=== PATIENT | female | born 1975 | race African-American/Black ===

== ENCOUNTER 2017-06-01 23:31 | Inpatient (IN) | payer MEDICARE ==
[2017-06-02 00:48] LABS: Acetaminophen Less than 6.0 mcg/mL (10.0-30.0); Alcohol Less than 10 mg/dL (Less than 10); Salicylate Less than 8.0 mg/dL (15.0-30.0)
[2017-06-02 00:49] LABS: ALT (SGPT) 16 U/L (8-55); AST (SGOT) 21 U/L (5-34); Albumin 4.2 g/dL (3.5-5.0); Alkaline Phosphatase 57 U/L (40-150); Anion Gap 16 mmol/L (10-20); BUN (Urea Nitrogen) 10 mg/dL (7.0-18.7); Bilirubin, Total 0.3 mg/dL (0.2-1.2); CK (CPK) 296 U/L (29-168); Calc. Creatinine Clearance 0 mL/min (70-130); Calcium 9.8 mg/dL (7.8-10.44); Carbon Dioxide 24 mmol/L (22-29); Chloride 106 mmol/L (98-107); Estimated GFR-MDRD 85; Globulin 2.8 g/dL (2.4-3.5); Glucose 99 mg/dL (70-105); Potassium 3.6 mmol/L (3.5-5.1); Sodium 142 mmol/L (136-145)
[2017-06-02 01:19] LABS: #Eosinphils 0.1 thou/uL (0.0-0.7); #Lymphocytes 0.6 thou/uL (1.20-3.40); #Monocytes 0.7 thou/uL (0.11-0.59); #Neutrophils 7.3 thou/uL (1.40-6.50); %Basophils 0.5 % (0.0-1.0); %Eosinophils 0.6 % (0.0-10.0); %Lymphocytes 7.3 % (21.0-51.0); %Monocytes 7.7 % (0.0-10.0); Mean Corpuscular HGB CONC 27.1 g/dL (32.0-36.0); Mean Corpuscular Hemoglobin 17.1 pg (27.0-31.0); Mean Corpuscular Volume 63.2 fl (81.0-99.0); Mean Platelet Volume 11.8 fL (7.4-10.4); Platelet Count 537 thou/uL (130-400); RBC Distribution Width 22.4 % (11.5-14.5); Red Blood Cell (RBC) Count 2.93 mill/uL (4.20-5.40); White Blood Cell (WBC) Count 8.7 thou/uL (4.8-10.8)
[2017-06-02 01:34] LABS: Anisocytosis MODERATE=16-30 cells (100X) (0-5/hpf); Hypochromia MODERATE=16-30 cells (100X) (0-5/hpf); Microcytosis MODERATE=15-30 cells (100X) (0-5/hpf); Polychromasia SLIGHT = 2-3 cells (100X) (0-2/hpf)
[2017-06-02 01:35] LABS: PLT Morphology Comment Appears Increased; Spherocytes SLIGHT = 1-5 cells (100X) (None Seen); Tear Drops SLIGHT = 2-5 cells (100X) (0-1/hpf)
[2017-06-02 04:21] LABS: Pregnancy Test - Urine (BHCG) Negative (Negative); Pregu Control Background? CLEAR/WHITE (CLR/WHITE); Pregu Control Bar Appear? YES (CONTROL BAR)
[2017-06-02 04:22] LABS: Bilirubin Negative (Negative); Blood, Urine Moderate (Negative); Clarity CLEAR (Clear); Glucose, Urine (Dipstick) Negative (Negative); Leukocyte Negative (Negative); Nitrite Negative (Negative); Protein, Urine (Dipstick) Trace mg/dL (Neg-Trace); Specific Gravity 1.022 (1.002-1.036); Specific Gravity, Urine 1.022 (1.002-1.036)
[2017-06-02 04:25] LABS: Bacteria/HPF None Seen HPF (None Seen); Hyaline Casts/LPF 7-10 HYALINE CAST LPF (0-3 Hyaline); Pathc Cast-AUWi Flag 1.21 (0-2.49); RBC/HPF 21-50 HPF (0-3); Squamous Epithelial 0-3 HPF (0-3)
[2017-06-02 04:30] LABS: Benzodiazepine Screen Detected (NotDetected)
[2017-06-02 04:31] LABS: Amphetamine Not Detected (NotDetected); Barbiturates Screen Not Detected (NotDetected); Cocaine Metabolite Screen Not Detected (NotDetected); Medtox Control Line Valid? VALID (VALID); Medtox Reader # READER 1; Methadone Not Detected (NotDetected); Methamphetamine Not Detected (NotDetected); Opiate Screen Not Detected (NotDetected); Oxycodone Screen Not Detected (NotDetected); Phencyclidine (PCP) Not Detected (NotDetected); THC/Cannabinoid Screen Not Detected (NotDetected); Tricyclic Screen Not Detected (NotDetected)
--- NOTE | 2017-06-02 08:01 | ULT ---
PRELIMINARY REPORT/[facility]/EMERGENCY AFTER HOURS PROCEDURE: EXAM: US Pelvis Complete, Transabdominal CLINICAL HISTORY: 42 years old, female; Pain and signs and symptoms; Other: Bleeding with clots; Pelvic pain; Patient H X: Heavy vaginal bleeding with clots, pelvic cramping pain. ; Additional info: HX: Anemia TECHNIQUE: Real-time transabdominal pelvic ultrasound (complete) with image documentation. COMPARISON: No relevant prior studies available. FINDINGS: Uterus/cervix: Significantly large heterogeneous uterine mass/fibroid measuring up to 11.5 cm. Endometrium is not well visualized and probably displaced by the mass. Right ovary: Not visualized. Left ovary: Not visualized. Free fluid: No significant free fluid. IMPRESSION: Significantly large uterine mass/fibroid described above. Thank you for allowing us to participate in the care of your patient. Dictated and Authenticated by: Frederick Brooks MD 06/02/2017 3:02 AM Central Time ([place] & [place]) FINAL REPORT TRANSABDOMINAL PELVIC ULTRASOUND: I agree with the preliminary report given by Dr. Frederick Brooks of [facility]. POS: [facility]
[2017-06-02 08:24] LABS: Hemoglobin 6.4 g/dL (12.0-16.0)
[2017-06-02 08:36] VITALS: BMI 28.3
--- NOTE | 2017-06-02 11:14 | HP ---
DATE OF ADMISSION: 06/02/2017 CHIEF COMPLAINT: Severe anemia, thought to be secondary to menorrhagia and fibroids. HISTORY OF PRESENT ILLNESS: At the time of presentation, Ms. Zuleta is a 42-year-old nulliparous fema le, who states that she presented to the emergency department because "I could not control my arms or head." The patient states that that symptom is going on for the last 2-3 months. Of note, the [facility] ent has schizoaffective disorder, for which she is seen at [facility]. She is on Haldol and Cogentin and h as tardive dyskinesia. While the patient was being evaluated, she was found to have severe anemia wi th hemoglobin of 5, hematocrit 18, MCV 63.2, platelets were 537, white blood cell count is 8.7. She was transfused 1 unit in the emergency department and has a resulting hemoglobin at 08:14 this mornin g of 6.4. The patient states that she does feel slightly better. She denies any lightheadedness or dizziness when she stands up and walks around. The patient has had heavy periods since she started h aving periods at age 11 or 12. She states that her menses are irregular and she has them approximate ly every other month. They last 8-9 days. She is unsure how many pads per hour she changes on the of her periods, but states that at night she has to get up sometimes 3 or 4 times during the night to change her pad. She has been on control in the past greater than one year ago in the form of control pills. She states that they stopped her periods completely. The patient is not sexually active. Her last Pap smear was greater than 10 years ago. The patient denies any lightheadedness or dizziness. She denies any cardiovascular or respiratory co mplaints. As far as neurologic review of systems, she reports difficulty controlling her arms and he ad, that has been going on for the last 2-3 months and she has not been evaluated for that. The princess ent is currently bleeding and states that her periods started on 05/31/2017. LIMITED REVIEW OF SYSTEMS: Per HPI. PAST MEDICAL HISTORY: Schizoaffective disorder. PAST SURGICAL HISTORY: Tonsils and adenoids. OBSTETRIC HISTORY: The patient is a 0 and is not sexually active. SOCIAL HISTORY: The patient denies tobacco, alcohol, or illicit drug use. She states she lives with her uncle who helps her. MEDICATIONS: Haldol and Cogentin. ALLERGIES: The patient states that there is a medicine she has taken in the past, which caused encep halitis, but she is unsure of the name. PHYSICAL EXAMINATION: VITAL SIGNS: Temperature 98.8, pulse 85, respiratory rate 18, blood pressure 132/98. GENERAL: Nontoxic-appearing female with unusual posturing in the position, somewhat somnolent and with difficulty with muscle control, perhaps which is causing her to slip her words. HEENT: Normocephalic, atraumatic. LUNGS: Clear to auscultation. CARDIOVASCULAR: Regular rate and rhythm. ABDOMEN: Positive bowel sounds in all 4 quadrants, soft, nontender, nondistended, no rebound, no gua rding. There is a palpable uterine fundus just above the level of the umbilicus, greater on the left hemipelvis than the right that is nontender. GENITOURINARY: Deferred. EXTREMITIES: Without cyanosis, clubbing, or edema. LABORATORY DATA AND STUDIES: White blood cell count 8.7, hemoglobin 5, hematocrit 18.5, MCV 63.2, pl atelets 537. Followup hemoglobin and hematocrit after 1 unit, hemoglobin 6.4, hematocrit 22.6. Chem istries are normal. Urinalysis is likely contaminated. Urine test is negative. Urine karlo g screen is notable only for benzodiazepines. Pelvic ultrasound is notable for an 11 cm fibroid. En dometrium not well visualized. Right ovary or left ovary not visualized. No significant free fluid in the pelvis. ASSESSMENT AND PLAN: 1. A 42-year-old nulliparous non-sexually active female, who suffers from schizoaffective disorder a nd tardive dyskinesia, presents with severe anemia. Given the size of the patient's fibroids and wha t she is able to describe of her periods it is likely secondary to chronic menorrhagia. The patient states that she was aware that she had the fibroid, has been on control pills in the past, whic h completely stopped her periods. Patient is not sure why she discontinued the control pills, but would be willing to try them again. She states she does not like shots, though would likely not be a good candidate for Depo-Provera. Given the patient's mental illness, despite her age, a more in -depth conversation would need to be had regarding any procedures that would affect her fertility. I would transfuse 1 more unit of packed red blood cells to bring her hemoglobin up to 7 given that she is still relatively early into this cycle. 2. The patient's chief complaint was actually not necessarily related to the anemia, but that she co uld not control her arms or her head. I am unsure if this is related to the tardive dyskinesia or so me new finding. The patient states that this started about 2-3 months ago. We will consider either internal medicine or neurology consultations.
[2017-06-02] MEDS ORDERED: Megestrol Acetate 40 MG TAB PO SCH (13:45)
[2017-06-02 19:09] LABS: Hemoglobin 7.4 g/dL (12.0-16.0)
--- NOTE | 2017-06-02 23:39 | CON ---
DATE OF CONSULTATION: 06/02/2017 CONSULTING PHYSICIAN: Dr. Samuel Esquivel. IMPRESSION: Tardive dyskinesia secondary to Haldol. PLAN: To have patient follow up with her psychiatrist at [facility] for a change in treatment. HISTORY: Ms. Zuleta is a 42-year-old black female was on history of schizoaffective disorder. She lewis s been followed by [facility] for quite some time. She has been on Haldol for a number of years by her rep ort. Over the last several months, she has developed some progressive movements of her face and extr emities. She has not seen her psychiatrist since these developed. She is also on Cogentin. PAST MEDICAL HISTORY: Intrauterine bleeding with anemia. ALLERGIES: None. MEDICATIONS: As listed. SOCIAL HISTORY: Unremarkable. FAMILY HISTORY: Noncontributory. REVIEW OF SYSTEMS: No complaint of headache, nausea, vomiting, dizziness, shortness of breath. PHYSICAL EXAMINATION: GENERAL: She is a well-nourished middle-aged woman sitting in the bed. HEENT: Her eyes are disconjugate with the left eye laterally deviated. Conjunctivae clear. Orophar ynx clear. Cranium, normocephalic and atraumatic. NECK: Supple. EXTREMITIES: No cyanosis. NEUROLOGIC: She is alert and cooperative. Speech is fluent and clear. Cranial nerves are intact ot her than the ocular movements. Motor exam showed good strength bilaterally. Rapid alternating movem ents were equal. She has writhing dyskinetic movements of the face, neck, and upper extremities. Se nsations intact. Gait was not tested. SUMMARY: Patient's clinical picture is consistent with tardive dyskinesia secondary to her antipsych otic medication and be happy to follow up with her as an outpatient to pursue some other treatments i f a change in medication does not solve the problem.
[2017-06-03] MEDS ORDERED: Megestrol Acetate 40 MG TAB PO SCH ×3 (09:00→21:00)
--- NOTE | 2017-06-03 09:11 | PDOC.EVN ---
Event Note - Event Note Event Note: 06/03/17 @ 0910: Care assumed this AM. I have restarted her Haldol and cogentin medication for today. I have also increased her Megase 40mg BIB from [facility]D. Possible DC home tomorrow. Neuro has seen her already for her TD medication effects.
[2017-06-03] MEDS ORDERED: Benztropine 1 MG TAB PO SCH (10:00)
--- NOTE | 2017-06-03 10:46 | PDOC.EVN ---
Event Note - Event Note Event Note: Per case management, patient changed by me from OBS to Inpatient as she will stay inhouse today for continued megase use. DX: Heavy menstrual bleed.
[2017-06-03] MEDS ORDERED: Lorazepam 1 MG TAB PO PRN (12:49)
--- NOTE | 2017-06-03 12:50 | PDOC.EVN ---
Event Note - Event Note Event Note: Called by RN that patient agitated. Will order Ativan for help with her anxiety/ agitation.
--- NOTE | 2017-06-03 13:36 | PDOC.EVN ---
Event Note - Event Note Event Note: @1340: [facility] requested as patient still highly agitated and "banging head on bed ". I have discussed case with partner integration planner and we will call [facility] for visitation. Patient requested Ativan po. may need a sitter for patient safety. We do NOT have inpatient pschy services.
--- NOTE | 2017-06-03 13:53 | PDOC.EVN ---
Event Note - Event Note Event Note: Patient sen and advised to take Ativan prn. [facility] pending.
--- NOTE | 2017-06-03 15:37 | PDOC.EVN ---
Event Note - Event Note Event Note: DISCHARGE NOTE Admit: 05/17/17 Discharge: 06/03/17 Patient is currently being seen by [facility]. They recommend misaelcleve now for anti- psychotic treatment. It is the recommendation of [facility] to have her go directly to inpatient psych hospitalization due to psychosis symptoms. I agree with [facility] that it is best for her to be transferred for her safety and for proper psych evaluation. We can continue with Megace 40mg BID for 10 days [facility]. [facility] in planning the patient's care. Nursing staff agrees with our plan. Diagnosis: 1. Anemia-s/p 2 units PRBC 2. Schizo-affective disorder 3. Acute psychosis 4. Heavy vaginal bleeding (resolved) 5. Fibroid uterus
[2017-06-03] MEDS: Benztropine 1 MG TAB PO SCH ×2 (15:40→20:27)
[2017-06-03] MEDS ORDERED: Ziprasidone 20 MG VIAL IM SCH (16:45)
[2017-06-03] MEDS ORDERED: Sterile Water 10 ML VIAL FS SCH (16:45)
--- NOTE | 2017-06-03 20:05 | PDOC.EVN ---
Event Note - Event Note Event Note: Just talked with Karlos Sow inpatient Pyelif. MD to MD transfer done now. Awaiting senior procurement manager transfer per protocol due to [facility] recommendation. Accepting MD aware of patient's HX of HMB and on Megace. No acute medical issues now as VB decreased.
[2017-06-03 20:48] VITALS: BP 133/78; TEMP 98.8
[2017-06-03] MEDS ORDERED: Haloperidol 1 MG TAB PO SCH (21:00)
[2017-06-04] MEDS ORDERED: Benztropine 1 MG TAB PO SCH ×2 (09:00)
== END 2017-06-03 22:01 | DRG 760 ==
LOC: ERS 23:31 → ERHOLD 06-02 03:18 → SURG A 06-02 07:59 → OBSVTOIN 06-03 10:45
PROVIDERS: ADMIT Obstetrics & Gynecology; ATTEND Obstetrics & Gynecology
PROC: 30233N1 Transfusion of Nonautologous Red Blood Cells into Peripheral Vein, Percutaneous Approach (ICD-10-PCS; principal; 2017-06-02)
DX: N92.0 Excessive and frequent menstruation with regular cycle (principal); F23 Brief psychotic disorder; F25.9 Schizoaffective disorder, unspecified; G24.01 Drug induced subacute dyskinesia; D64.9 Anemia, unspecified; T43.4X5A Adverse effect of butyrophenone and thiothixene neuroleptics, initial encounter; D25.9 Leiomyoma of uterus, unspecified; R45.1 Restlessness and agitation; F41.9 Anxiety disorder, unspecified
CPT/HCPCS: 36415; 36430; 76856; 80053; 80306; 80307; 81003; 81015; 81025; 82550; 85025; 85060; 86850; 86900; 86901; 93005; 93976; A4216; J3486; P9016; S0179

== ENCOUNTER 2018-05-16 11:45 | Emergency (ER) | payer MEDICARE ==
[2018-05-16 12:35] LABS: Amphetamine Not Detected (NotDetected); Barbiturates Screen Not Detected (NotDetected); Benzodiazepine Screen Not Detected (NotDetected); Cocaine Metabolite Screen Not Detected (NotDetected); Medtox Control Line Valid? VALID (VALID); Medtox Reader # READER 1; Methadone Not Detected (NotDetected); Methamphetamine Not Detected (NotDetected); Opiate Screen Not Detected (NotDetected); Oxycodone Screen Not Detected (NotDetected); Phencyclidine (PCP) Not Detected (NotDetected); THC/Cannabinoid Screen Not Detected (NotDetected); Tricyclic Screen Not Detected (NotDetected)
[2018-05-16 12:37] LABS: BHCG - Serum Negative (NEGATIVE); Pregs Control Background? CLEAR/WHITE (CLR/WHITE); Pregs Control Bar Appear? YES (CONTROL BAR)
[2018-05-16 12:43] LABS: ALT (SGPT) 10 U/L (8-55); AST (SGOT) 16 U/L (5-34); Acetaminophen Less than 6.0 mcg/mL (10.0-30.0); Alcohol Less than 10 mg/dL (Less than 10); Alkaline Phosphatase 60 U/L (40-150); Anion Gap 12 mmol/L (10-20); BUN (Urea Nitrogen) 10 mg/dL (7.0-18.7); Bilirubin, Total 0.2 mg/dL (0.2-1.2); CK (CPK) 204 U/L (29-168); Calc. Creatinine Clearance 0 mL/min (70-130); Calcium 9.3 mg/dL (7.8-10.44); Carbon Dioxide 22 mmol/L (22-29); Chloride 110 mmol/L (98-107); Estimated GFR-MDRD Greater than 90; Globulin 2.8 g/dL (2.4-3.5); Glucose 75 mg/dL (70-105); Potassium 4.5 mmol/L (3.5-5.1); Protein, Total 6.8 g/dL (6.0-8.3); Salicylate Less than 8.0 mg/dL (15.0-30.0); Sodium 139 mmol/L (136-145)
[2018-05-16 12:58] LABS: Hemoglobin 5.2 g/dL (12.0-16.0); Mean Corpuscular HGB CONC 27.2 g/dL (32.0-36.0); Mean Corpuscular Hemoglobin 17.4 pg (27.0-31.0); Mean Corpuscular Volume 64.2 fL (78.0-98.0); Mean Platelet Volume 11.6 fL (7.4-10.4); Platelet Count 276 thou/uL (130-400); RBC Distribution Width 19.1 % (11.5-14.5); Red Blood Cell (RBC) Count 2.96 mill/uL (4.20-5.40); White Blood Cell (WBC) Count 3.4 thou/uL (4.8-10.8)
[2018-05-16 13:08] LABS: Band 2 % (5-11); Bite Cells SLIGHT = 2-5 cells (100X) (0-1/hpf); Eosinophils 2 % (0-10); Hypochromia MARKED = >30 cells (100X) (0-5/hpf); Lymphocytes 19 % (21-51); MDiff Complete? YES; Microcytosis MODERATE=15-30 cells (100X) (0-5/hpf); Monocytes 16 % (0-10); Neutrophil 61 % (42-75); Nucleated RBC 1 % (0); Ovalocytes MODERATE= 6-15 cells (100X) (0-1/hpf); PLT Morphology Comment Appears Adequate; Polychromasia SLIGHT = 2-3 cells (100X) (0-2/hpf); Reflex for Review?? YES; Tear Drops SLIGHT = 2-5 cells (100X) (0-1/hpf)
[2018-05-16 15:24] LABS: Hemoglobin 6.5 g/dL (12.0-16.0); Mean Corpuscular HGB CONC 29.8 g/dL (32.0-36.0); Mean Corpuscular Hemoglobin 20.4 pg (27.0-31.0); Mean Corpuscular Volume 68.2 fL (78.0-98.0); Platelet Count 287 thou/uL (130-400); RBC Distribution Width 24.1 % (11.5-14.5); Red Blood Cell (RBC) Count 3.19 mill/uL (4.20-5.40); White Blood Cell (WBC) Count 4.7 thou/uL (4.8-10.8)
[2018-05-16 16:01] LABS: #Basophils 0.1 thou/uL (0.0-0.2); #Lymphocytes 1.2 thou/uL (1.20-3.40); #Monocytes 0.5 thou/uL (0.11-0.59); #Neutrophils 2.9 thou/uL (1.40-6.50); %Basophils 1.3 % (0.0-1.0); %Lymphocytes 25.4 % (21.0-51.0); %Monocytes 10.5 % (0.0-10.0); %Neutrophils 61.8 % (42.0-75.0); Anisocytosis SLIGHT = 6-15 cells (100X) (0-5/hpf); Band 3 % (5-11); Elliptocytes SLIGHT = 2-5 cells (100X) (0-1/hpf); Hypochromia SLIGHT = 6-15 cells (100X) (0-5/hpf); Lymphocytes 22 % (21-51); MDiff Complete? YES; Microcytosis SLIGHT = 6-15 cells (100X) (0-5/hpf); Monocytes 6 % (0-10); Neutrophil 69 % (42-75); PLT Morphology Comment Appears Adequate; Poikilocytosis SLIGHT = 6-15 cells (100X) (0-5/hpf); Polychromasia SLIGHT = 2-3 cells (100X) (0-2/hpf); Tear Drops SLIGHT = 2-5 cells (100X) (0-1/hpf)
[2018-05-16] MEDS ORDERED: Benztropine 1 MG TAB PO SCH (21:00)
[2018-05-16] MEDS ORDERED: Haloperidol 1 MG TAB PO SCH (21:00)
[2018-05-17] MEDS ORDERED: Lidocaine Viscous Sol 2% 15 ml UD Cup ONE (01:50)
[2018-05-17] MEDS ORDERED: Mag-Al 1200 mg/1200 mg/30 ML UDCUP ONE (01:50)
[2018-05-17 11:47] LABS: Hemoglobin 6.6 g/dL (12.0-16.0); Mean Corpuscular Hemoglobin 19.7 pg (27.0-31.0); Mean Corpuscular Volume 67.8 fL (78.0-98.0); Mean Platelet Volume 6.3 fL (7.4-10.4); Platelet Count 276 thou/uL (130-400); RBC Distribution Width 23.4 % (11.5-14.5); Red Blood Cell (RBC) Count 3.37 mill/uL (4.20-5.40); White Blood Cell (WBC) Count 3.7 thou/uL (4.8-10.8)
[2018-05-17 11:52] LABS: Anisocytosis MODERATE=16-30 cells (100X) (0-5/hpf); Band 3 % (5-11); Eosinophils 4 % (0-10); Hypochromia MARKED = >30 cells (100X) (0-5/hpf); Lymphocytes 27 % (21-51); MDiff Complete? YES; Microcytosis MODERATE=15-30 cells (100X) (0-5/hpf); Monocytes 6 % (0-10); Neutrophil 58 % (42-75); Ovalocytes MODERATE= 6-15 cells (100X) (0-1/hpf); PLT Morphology Comment Appears Adequate; Polychromasia SLIGHT = 2-3 cells (100X) (0-2/hpf); Reactive Lymphocytes 1 % (0-10); Tear Drops SLIGHT = 2-5 cells (100X) (0-1/hpf)
--- NOTE | 2018-05-17 15:53 | EKG ---
Test Reason : Blood Pressure : / mmHG Vent. Rate : 091 BPM Atrial Rate : 091 BPM P-R Int : 124 ms QRS Dur : 084 ms QT Int : 344 ms P-R-T Axes : 066 021 009 degrees QTc Int : 423 ms Normal sinus rhythm Nonspecific T wave abnormality Abnormal ECG Confirmed by SELMA BOLANOS ([id number]), editor managing newspaper SAMMI ORDOÑEZ ([id number]) on 05/17/2018 3:53:17 PM Referred By: Confirmed By:SELMA BOLANOS
== END 2018-05-17 15:53 | disposition home or self-care (01) ==
LOC: ERS 11:45
DX: F20.9 Schizophrenia, unspecified (principal); R44.0 Auditory hallucinations; D50.0 Iron deficiency anemia secondary to blood loss (chronic); F32.9 Major depressive disorder, single episode, unspecified; Z79.899 Other long term (current) drug therapy
CPT/HCPCS: 36430; 80053; 80306; 80307; 82550; 84703; 85025 ×2; 86850; 86900; 86901; 86920; 93005; P9016; 36415; 85060

== ENCOUNTER 2018-06-05 08:59 | Emergency (ER) | payer MEDICARE ==
[2018-06-05] MEDS ORDERED: Haloperidol 1 MG TAB ONE (09:05)
[2018-06-05] MEDS ORDERED: Lorazepam 1 MG TAB ONE (09:23)
[2018-06-05] MEDS ORDERED: diphenhydrAMINE 25 MG CAP ONE (09:23)
[2018-06-05 10:04] LABS: BHCG - Serum Negative (NEGATIVE); Pregs Control Background? CLEAR/WHITE (CLR/WHITE); Pregs Control Bar Appear? YES (CONTROL BAR)
[2018-06-05 10:10] LABS: ALT (SGPT) 8 U/L (8-55); AST (SGOT) 13 U/L (5-34); Acetaminophen Less than 6.0 mcg/mL (10.0-30.0); Alcohol Less than 10 mg/dL (Less than 10); Alkaline Phosphatase 66 U/L (40-150); Anion Gap 12 mmol/L (10-20); BUN (Urea Nitrogen) 8 mg/dL (7.0-18.7); Bilirubin, Total 0.3 mg/dL (0.2-1.2); CK (CPK) 104 U/L (29-168); Calc. Creatinine Clearance 0 mL/min (70-130); Calcium 9.5 mg/dL (7.8-10.44); Carbon Dioxide 26 mmol/L (22-29); Chloride 106 mmol/L (98-107); Estimated GFR-MDRD Greater than 90; Globulin 2.8 g/dL (2.4-3.5); Glucose 88 mg/dL (70-105); Potassium 4.2 mmol/L (3.5-5.1); Protein, Total 6.8 g/dL (6.0-8.3); Salicylate Less than 8.0 mg/dL (15.0-30.0); Sodium 140 mmol/L (136-145)
[2018-06-05 10:24] LABS: #Eosinphils 0.1 thou/uL (0.0-0.7); #Lymphocytes 0.9 thou/uL (1.20-3.40); #Monocytes 0.9 thou/uL (0.11-0.59); %Basophils 0.7 % (0.0-1.0); %Lymphocytes 12.5 % (21.0-51.0); %Monocytes 13.2 % (0.0-10.0); %Neutrophils 72.7 % (42.0-75.0); Eosinophils 1 % (0-10); Hemoglobin 6.7 g/dL (12.0-16.0); Hypochromia MODERATE=16-30 cells (100X) (0-5/hpf); Large Platelets SLIGHT; Lymphocytes 7 % (21-51); MDiff Complete? YES; Mean Corpuscular HGB CONC 28.7 g/dL (32.0-36.0); Mean Corpuscular Hemoglobin 18.9 pg (27.0-31.0); Mean Platelet Volume 7.3 fL (7.4-10.4); Microcytosis SLIGHT = 6-15 cells (100X) (0-5/hpf); Monocytes 13 % (0-10); Neutrophil 77 % (42-75); Platelet Count 331 thou/uL (130-400); Platelet Morphology Comment Appears Adequate; Polychromasia SLIGHT = 2-3 cells (100X) (0-2/hpf); RBC Distribution Width 22.9 % (11.5-14.5); Reactive Lymphocytes 2 % (0-10); Red Blood Cell (RBC) Count 3.53 mill/uL (4.20-5.40); Small Platelets SLIGHT; White Blood Cell (WBC) Count 6.9 thou/uL (4.8-10.8)
[2018-06-05 13:00] LABS: Bilirubin Negative (Negative); Blood, Urine Negative (Negative); Clarity CLEAR (Clear); Glucose, Urine (Dipstick) Negative (Negative); Leukocyte Negative (Negative); Nitrite Negative (Negative); Protein, Urine (Dipstick) Negative (Neg-Trace); Specific Gravity, Urine 1.003 (1.002-1.036); Urobilinogen 0.2 mg/dL (0.2-1.0)
[2018-06-05 13:10] LABS: Amphetamine Not Detected (NotDetected); Barbiturates Screen Not Detected (NotDetected); Benzodiazepine Screen Not Detected (NotDetected); Cocaine Metabolite Screen Not Detected (NotDetected); Medtox Control Line Valid? VALID (VALID); Medtox Reader # READER 1; Methadone Not Detected (NotDetected); Methamphetamine Not Detected (NotDetected); Opiate Screen Not Detected (NotDetected); Oxycodone Screen Not Detected (NotDetected); Phencyclidine (PCP) Not Detected (NotDetected); THC/Cannabinoid Screen Not Detected (NotDetected); Tricyclic Screen Not Detected (NotDetected)
== END 2018-06-05 15:57 | disposition home or self-care (01) ==
LOC: ERS 08:59
DX: F20.9 Schizophrenia, unspecified (principal); D64.9 Anemia, unspecified; G24.01 Drug induced subacute dyskinesia; F32.9 Major depressive disorder, single episode, unspecified; Z79.899 Other long term (current) drug therapy
CPT/HCPCS: 36415; 80053; 80306; 80307; 81003; 82550; 84443; 84703; 85025; 99285

== ENCOUNTER 2018-07-12 18:08 | Emergency (ER) | payer MEDICARE ==
[2018-07-12] MEDS ORDERED: Lorazepam 1 MG TAB ONE (18:34)
[2018-07-12] MEDS ORDERED: diphenhydrAMINE 25 MG CAP ONE (18:35)
[2018-07-12 19:16] LABS: Bilirubin Negative (Negative); Blood, Urine Negative (Negative); Clarity CLEAR (Clear); Glucose, Urine (Dipstick) Negative (Negative); Leukocyte Negative (Negative); Nitrite Negative (Negative); Protein, Urine (Dipstick) Negative (Neg-Trace); Specific Gravity, Urine 1.012 (1.002-1.036); pH, Urine 5.5 (5.0-9.0)
[2018-07-12 19:25] LABS: Pregnancy Test - Urine (BHCG) Negative (Negative); Pregu Control Background? CLEAR/WHITE (CLR/WHITE); Pregu Control Bar Appear? YES (CONTROL BAR); Specific Gravity 1.012 (1.002-1.036)
== END 2018-07-12 20:22 | disposition home or self-care (01) ==
LOC: ERS 18:08
DX: G24.01 Drug induced subacute dyskinesia (principal); F32.9 Major depressive disorder, single episode, unspecified; F20.9 Schizophrenia, unspecified; Z79.899 Other long term (current) drug therapy
CPT/HCPCS: 81003; 81025; 99285; Q0163

== ENCOUNTER 2019-01-11 12:52 | Day surgery (SDC) | payer MEDICARE, MEDICAID ==
[~2019-01-11 12:52] MED LIST: Ferumoxytol (ERSD) 510 MG in Sodium Chloride 0.9% 250 ML 150 ML IVPB SCH
[2019-01-11] MEDS ORDERED: Sodium Chloride 0.9% 20 ML ONE (13:03)
[2019-01-11 13:19] VITALS: BP 139/73; TEMP 98.2
[2019-01-11 13:28] LABS: #Basophils 0.1 thou/uL (0.0-0.2); #Eosinphils 0.1 thou/uL (0.0-0.7); #Lymphocytes 1.2 thou/uL (1.20-3.40); #Monocytes 0.6 thou/uL (0.11-0.59); #Neutrophils 2.7 thou/uL (1.40-6.50); %Basophils 1.5 % (0.0-1.0); %Eosinophils 1.6 % (0.0-10.0); %Lymphocytes 25.4 % (21.0-51.0); %Monocytes 13.2 % (0.0-10.0); %Neutrophils 58.3 % (42.0-75.0); Hemoglobin 7.6 g/dL (12.0-16.0); Mean Corpuscular HGB CONC 29.7 g/dL (32.0-36.0); Mean Corpuscular Hemoglobin 20.4 pg (27.0-31.0); Mean Corpuscular Volume 68.5 fL (78.0-98.0); Mean Platelet Volume 11.7 fL (7.4-10.4); Platelet Count 269 thou/uL (130-400); RBC Distribution Width 20.4 % (11.5-14.5); Red Blood Cell (RBC) Count 3.74 mill/uL (4.20-5.40); White Blood Cell (WBC) Count 4.6 thou/uL (4.8-10.8)
[2019-01-11 13:54] LABS: Anisocytosis MODERATE=16-30 cells (100X) (0-5/hpf); Hypochromia SLIGHT = 6-15 cells (100X) (0-5/hpf); MDiff Complete? YES; Microcytosis SLIGHT = 6-15 cells (100X) (0-5/hpf); Ovalocytes SLIGHT = 2-5 cells (100X) (0-1/hpf); Platelet Morphology Comment Appears Adequate; Poikilocytosis SLIGHT = 6-15 cells (100X) (0-5/hpf); Polychromasia SLIGHT = 2-3 cells (100X) (0-2/hpf); Schistocytes SLIGHT = 2-5 cells (100X) (0-1/hpf); Spherocytes SLIGHT = 1-5 cells (100X) (None Seen); Target Cells SLIGHT = 2-5 cells (100X) (0-1/hpf); Tear Drops SLIGHT = 2-5 cells (100X) (0-1/hpf)
== END 2019-01-11 15:29 | disposition home or self-care (01) ==
LOC: ONC/OP 12:52
PROVIDERS: ATTEND Internal Medicine Hematology & Oncology
DX: D50.0 Iron deficiency anemia secondary to blood loss (chronic) (principal)
CPT/HCPCS: 85025; 96365; J7050; Q0139

== ENCOUNTER 2019-02-02 09:36 | Day surgery (SDC) | payer MEDICARE, MEDICAID ==
[~2019-02-02 09:36] MED LIST changes: -Ferumoxytol (ERSD) 510 MG in Sodium Chloride 0.9% 250 ML 150 ML IVPB SCH; +Ferumoxytol (NON ERSD) 510 MG in Sodium Chloride 0.9% 250 ML 150 ML IVPB SCH
[2019-02-02] MEDS ORDERED: Sodium Chloride 0.9% 20 ML ONE (09:51)
[2019-02-02 11:32] LABS: #Eosinphils 0.1 thou/uL (0.0-0.7); #Lymphocytes 1.1 thou/uL (1.20-3.40); #Monocytes 0.3 thou/uL (0.11-0.59); #Neutrophils 1.9 thou/uL (1.40-6.50); %Basophils 0.4 % (0.0-1.0); %Eosinophils 2.5 % (0.0-10.0); %Lymphocytes 31.6 % (21.0-51.0); %Neutrophils 55.6 % (42.0-75.0); Hemoglobin 10.3 g/dL (12.0-16.0); Mean Corpuscular HGB CONC 30.6 g/dL (32.0-36.0); Mean Corpuscular Hemoglobin 23.7 pg (27.0-31.0); Mean Corpuscular Volume 77.5 fL (78.0-98.0); Mean Platelet Volume 11.6 fL (7.4-10.4); Platelet Count 280 thou/uL (130-400); RBC Distribution Width 24.9 % (11.5-14.5); Red Blood Cell (RBC) Count 4.35 mill/uL (4.20-5.40); White Blood Cell (WBC) Count 3.4 thou/uL (4.8-10.8)
[2019-02-02 11:33] VITALS: BP 109/67; TEMP 98.3
[2019-02-02 11:46] LABS: Anisocytosis MODERATE=16-30 cells (100X) (0-5/hpf); Hypochromia SLIGHT = 6-15 cells (100X) (0-5/hpf); MDiff Complete? YES; Polychromasia SLIGHT = 2-3 cells (100X) (0-2/hpf); Schistocytes SLIGHT = 2-5 cells (100X) (0-1/hpf)
== END 2019-02-02 11:35 | disposition home or self-care (01) ==
LOC: ONC/OP 09:36
PROVIDERS: ATTEND Internal Medicine Hematology & Oncology
DX: D50.0 Iron deficiency anemia secondary to blood loss (chronic) (principal)
CPT/HCPCS: 85025; 96365; J7050; Q0138

== ENCOUNTER 2019-08-16 11:49 | Inpatient (IN) | payer MEDICARE, MEDICAID ==
[2019-08-16 12:40] LABS: #Lymphocytes 0.7 thou/uL (1.20-3.40); #Monocytes 0.4 thou/uL (0.11-0.59); #Neutrophils 2.5 thou/uL (1.40-6.50); %Basophils 1.2 % (0.0-1.0); %Eosinophils 0.8 % (0.0-10.0); %Lymphocytes 19.9 % (21.0-51.0); %Neutrophils 67.2 % (42.0-75.0); Hemoglobin 5.1 g/dL (12.0-16.0); Mean Corpuscular HGB CONC 28.4 g/dL (32.0-36.0); Platelet Count 427 thou/uL (130-400); Red Blood Cell (RBC) Count 2.68 mill/uL (4.20-5.40); White Blood Cell (WBC) Count 3.7 thou/uL (4.8-10.8)
[2019-08-16 12:46] LABS: BHCG - Serum Negative (NEGATIVE)
[2019-08-16 12:47] LABS: Pregs Control Background? CLEAR/WHITE (CLR/WHITE); Pregs Control Bar Appear? YES (CONTROL BAR)
[2019-08-16 12:55] LABS: ALT (SGPT) 7 U/L (8-55); AST (SGOT) 12 U/L (5-34); Alkaline Phosphatase 55 U/L (40-110); Anion Gap 10 mmol/L (10-20); BUN (Urea Nitrogen) 11 mg/dL (7.0-18.7); Bilirubin, Total 0.2 mg/dL (0.2-1.2); CK (CPK) 124 U/L (29-168); Calc. Creatinine Clearance 0 mL/min (70-130); Calcium 9.3 mg/dL (7.8-10.44); Carbon Dioxide 27 mmol/L (22-29); Chloride 106 mmol/L (98-107); Estimated GFR-MDRD 89; Globulin 2.3 g/dL (2.4-3.5); Glucose 84 mg/dL (70-105); Potassium 4.2 mmol/L (3.5-5.1); Protein, Total 6.3 g/dL (6.0-8.3); Sodium 139 mmol/L (136-145)
[2019-08-16 13:01] LABS: Hypochromia MODERATE=16-30 cells (100X) (0-5/hpf)
[2019-08-16 13:02] LABS: Microcytosis MODERATE=15-30 cells (100X) (0-5/hpf); Ovalocytes MODERATE= 6-15 cells (100X) (0-1/hpf); Polychromasia SLIGHT = 2-3 cells (100X) (0-2/hpf); Target Cells SLIGHT = 2-5 cells (100X) (0-1/hpf)
[2019-08-16 13:19] LABS: Bacteria/HPF None Seen HPF (None Seen); Bilirubin Negative (Negative); Blood, Urine 3+ (Negative); Clarity Clear (Clear); Glucose, Urine (Dipstick) Normal (Negative); Leukocyte Negative Leu/uL (Negative); Nitrite Negative (Negative); Protein, Urine (Dipstick) Negative (Neg-Trace); RBC/HPF 21-50 HPF (0-3); Squamous Epithelial 0-3 HPF (0-3); Urobilinogen Normal mg/dL (Less than 2); WBC/HPF 0-3 HPF (0-3)
[2019-08-16 13:24] LABS: Thyroid Stimulating Hormone 1.1782 uIU/mL (0.35-4.94)
[2019-08-16 18:17] VITALS: BMI 28.0
--- NOTE | 2019-08-16 18:51 | HP ---
CHIEF COMPLAINT: Sent for medical clearance from [facility]. HISTORY OF PRESENT ILLNESS: This is a 44-year-old female with multiple psychiatric disorder, who was at [facility] and was sent to the emergency department for "medical clearance." In the ER, initial assessment revealed a hemoglobin level of 5.1. The patient does have abnormal uterine bleeding with menorrhagia. The patient will likely require more than 2 units of blood transfusion, and that will be time-consuming, so the ER has asked us to place this patient on observation until this transfusion has been completed and anemia is corrected. PAST MEDICAL HISTORY: No significant past medical or surgical history. PHYSICAL EXAMINATION: GENERAL: The patient is alert and oriented x3. HEENT: Head is normocephalic and atraumatic. Extraocular muscles are intact. NECK: Supple. CHEST: Clear to auscultation bilaterally. CARDIOVASCULAR: Revealed normal S1 and normal S2. No murmurs, rubs, or gallops. Regular rate and rhythm. ABDOMEN: Soft, nontender, and nondistended. NEUROLOGIC: Unremarkable for focal abnormalities. ASSESSMENT: 1. Anemia due to [id number] blood loss. 2. Menorrhagia. PLAN: We will transfuse 2 units of packed RBCs and recheck H and H and transfuse another unit if need be. Job ID: [id number] MTDD
[2019-08-16] MEDS ORDERED: hydrALAZINE 20 MG/ML VIAL SLOW IVP SCH (21:45)
[2019-08-17 06:26] LABS: Hemoglobin 7.8 g/dL (12.0-16.0); Mean Corpuscular HGB CONC 30.9 g/dL (32.0-36.0); Mean Corpuscular Hemoglobin 22.5 pg (27.0-31.0); Mean Corpuscular Volume 72.9 fL (78.0-98.0); Mean Platelet Volume 10.8 fL (7.4-10.4); Platelet Count 374 thou/uL (130-400); Red Blood Cell (RBC) Count 3.46 mill/uL (4.20-5.40); White Blood Cell (WBC) Count 4.5 thou/uL (4.8-10.8)
[2019-08-17 06:38] LABS: Anion Gap 10 mmol/L (10-20); BUN (Urea Nitrogen) 11 mg/dL (7.0-18.7); Calc. Creatinine Clearance 106 mL/min (70-130); Calcium 8.6 mg/dL (7.8-10.44); Carbon Dioxide 24 mmol/L (22-29); Chloride 108 mmol/L (98-107); Estimated GFR-MDRD Greater than 90; Glucose 88 mg/dL (70-105); Sodium 138 mmol/L (136-145)
[2019-08-17 06:39] LABS: Anisocytosis SLIGHT = 6-15 cells (100X) (0-5/hpf); Band 1 % (5-11); Eosinophils 1 % (0-10); Hypochromia MODERATE=16-30 cells (100X) (0-5/hpf); Lymphocytes 21 % (21-51); MDiff Complete? YES; Microcytosis SLIGHT = 6-15 cells (100X) (0-5/hpf); Monocytes 15 % (0-10); Neutrophil 62 % (42-75)
[2019-08-17] MEDS ORDERED: Benztropine 1 MG TAB PO SCH (11:30)
[2019-08-17] MEDS ORDERED: clonazePAM 0.5 MG TAB PO SCH (12:30)
--- NOTE | 2019-08-17 18:26 | PDOC.HOSPP ---
- Subjective Encounter Date: 08/17/19 Subjective: No new complaints. - Objective Vital Signs & Weight: Vital Signs (12 hours) Temp Pulse Pulse Resp BP BP Pulse Ox 08/17/19 17:45 98.3 F 83 20 163/96 H 08/17/19 15:00 99.0 F 80 20 147/94 H 08/17/19 14:45 98.6 F 83 20 156/83 H 08/17/19 12:24 98.3 F 83 18 143/81 H 99 08/17/19 08:42 98.9 F 76 18 146/98 H 100 08/17/19 08:00 100 Weight Weight 163 lb 3.2 oz I&O: 08/16/19 08/17/19 08/18/19 06:59 06:59 06:59 Intake Total 350 350 Balance 350 350 Result Diagrams: 08/17/19 05:43 08/17/19 05:43 Hospitalist ROS - Medication Medications: Active Medications Generic Name Dose Route Start Last Admin Trade Name Freq PRN Reason Stop Dose Admin Quetiapine Fumarate 100 mg 08/16/19 21:00 08/16/19 20:53 Seroquel PO 100 mg HS DERIC Administration - Exam General Appearance: NAD Eye: PERRL Neck: supple Heart: RRR Respiratory: CTAB Gastrointestinal: soft, non-tender Extremities: no cyanosis Hosp A/P (1) Anemia due to chronic blood loss Code(s): D50.0 - IRON DEFICIENCY ANEMIA SECONDARY TO BLOOD LOSS (CHRONIC) Status: Acute (2) Heavy menstrual bleeding Code(s): N92.0 - EXCESSIVE AND FREQUENT MENSTRUATION WITH REGULAR CYCLE Status : Acute - Plan Received 3 units of PRBCs Repeat CBC
[2019-08-17 19:10] LABS: Anisocytosis SLIGHT = 6-15 cells (100X) (0-5/hpf); Band 2 % (5-11); Hypochromia SLIGHT = 6-15 cells (100X) (0-5/hpf); Large Platelets SLIGHT; Lymphocytes 12 % (21-51); MDiff Complete? YES; Mean Corpuscular HGB CONC 30.9 g/dL (32.0-36.0); Mean Corpuscular Hemoglobin 23.2 pg (27.0-31.0); Microcytosis SLIGHT = 6-15 cells (100X) (0-5/hpf); Monocytes 10 % (0-10); Neutrophil 75 % (42-75); Ovalocytes SLIGHT = 2-5 cells (100X) (0-1/hpf); Platelet Count 436 thou/uL (130-400); Platelet Morphology Comment Appears Increased; Polychromasia MODERATE = 3-4 cells (100X) (0-2/hpf); RBC Distribution Width 21.9 % (11.5-14.5); Reactive Lymphocytes 1 % (0-10); Schistocytes SLIGHT = 2-5 cells (100X) (0-1/hpf); Target Cells MODERATE= 6-15 cells (100X) (0-1/hpf); Tear Drops SLIGHT = 2-5 cells (100X) (0-1/hpf); White Blood Cell (WBC) Count 6.7 thou/uL (4.8-10.8)
[2019-08-17] MEDS: Benztropine 1 MG TAB PO SCH (20:48)
[2019-08-18 06:41] LABS: Hemoglobin 9.9 g/dL (12.0-16.0); Mean Corpuscular HGB CONC 30.8 g/dL (32.0-36.0); Mean Corpuscular Hemoglobin 23.3 pg (27.0-31.0); Mean Corpuscular Volume 75.5 fL (78.0-98.0); Platelet Count 400 thou/uL (130-400); RBC Distribution Width 21.9 % (11.5-14.5); Red Blood Cell (RBC) Count 4.25 mill/uL (4.20-5.40)
[2019-08-18 06:52] LABS: Anisocytosis SLIGHT = 6-15 cells (100X) (0-5/hpf); Eosinophils 4 % (0-10); Hypochromia SLIGHT = 6-15 cells (100X) (0-5/hpf); Lymphocytes 25 % (21-51); MDiff Complete? YES; Microcytosis SLIGHT = 6-15 cells (100X) (0-5/hpf); Monocytes 12 % (0-10); Neutrophil 59 % (42-75)
[2019-08-18 06:57] LABS: Anion Gap 11 mmol/L (10-20); BUN (Urea Nitrogen) 9 mg/dL (7.0-18.7); Calc. Creatinine Clearance 97 mL/min (70-130); Calcium 9.3 mg/dL (7.8-10.44); Carbon Dioxide 25 mmol/L (22-29); Chloride 108 mmol/L (98-107); Estimated GFR-MDRD 86; Glucose 79 mg/dL (70-105); Sodium 140 mmol/L (136-145)
[2019-08-18] MEDS: Benztropine 1 MG TAB PO SCH ×2 (08:42→20:39)
[2019-08-18] MEDS ORDERED: INGREZZA 80 MG PO SCH (09:00)
--- NOTE | 2019-08-18 14:33 | EKG ---
Test Reason : Blood Pressure : / mmHG Vent. Rate : 079 BPM Atrial Rate : 079 BPM P-R Int : 120 ms QRS Dur : 084 ms QT Int : 362 ms P-R-T Axes : 059 017 012 degrees QTc Int : 415 ms Normal sinus rhythm Normal ECG Confirmed by ZENAIDA JAVIER D.O. ([id number]), editor greeting card VIRGINIA SANCHEZ ([id number]) on 08/18/2019 2:33:14 PM Referred By: Confirmed By:ZENAIDA JAVIER D.O.
[2019-08-18] MEDS ORDERED: clonazePAM 1 MG TAB PO SCH (16:00)
--- NOTE | 2019-08-18 19:35 | PDOC.HOSPP ---
- Subjective Encounter Date: 08/18/19 Subjective: The patient is currently stable and does not have any more symptoms of anemia. - Objective Vital Signs & Weight: Vital Signs (12 hours) Temp Pulse Resp BP Pulse Ox 08/18/19 08:30 95 08/18/19 07:39 98.4 F 70 20 165/89 H 95 Weight Weight 163 lb 3.2 oz I&O: 08/17/19 08/18/19 08/19/19 06:59 06:59 06:59 Intake Total 987 509 2785 Balance 255 400 7338 Result Diagrams: 08/18/19 06:08 08/18/19 06:08 Hospitalist ROS - Medication Medications: Active Medications Generic Name Dose Route Start Last Admin Trade Name Freq PRN Reason Stop Dose Admin Benztropine Mesylate 1 mg 08/17/19 21:00 08/18/19 08:42 Cogentin PO 1 mg BID DERIC Administration Quetiapine Fumarate 100 mg 08/16/19 21:00 08/17/19 20:48 Seroquel PO 100 mg HS DERIC Administration - Exam General Appearance: NAD ENT: normocephalic atraumatic Neck: supple, no JVD Heart: RRR Respiratory: CTAB Gastrointestinal: soft, non-tender, non-distended, normal bowel sounds Neurological: cranial nerve grossly intact, no focal deficits Hosp A/P (1) Anemia due to chronic blood loss Code(s): D50.0 - IRON DEFICIENCY ANEMIA SECONDARY TO BLOOD LOSS (CHRONIC) Status: Acute (2) Heavy menstrual bleeding Code(s): N92.0 - EXCESSIVE AND FREQUENT MENSTRUATION WITH REGULAR CYCLE Status : Acute - Plan H&H improved with blood transfusion. No evidence of further bleeding. The patient is asymptomatic. She is stable for discharge from medical standpoint.
[2019-08-19 05:56] LABS: Anion Gap 9 mmol/L (10-20); BUN (Urea Nitrogen) 11 mg/dL (7.0-18.7); Calc. Creatinine Clearance 100 mL/min (70-130); Calcium 9.1 mg/dL (7.8-10.44); Carbon Dioxide 29 mmol/L (22-29); Chloride 106 mmol/L (98-107); Estimated GFR-MDRD 90; Glucose 85 mg/dL (70-105); Potassium 3.9 mmol/L (3.5-5.1); Sodium 140 mmol/L (136-145)
[2019-08-19 07:04] LABS: Anisocytosis SLIGHT = 6-15 cells (100X) (0-5/hpf); Eosinophils 3 % (0-10); Hemoglobin 9.1 g/dL (12.0-16.0); Lymphocytes 19 % (21-51); MDiff Complete? YES; Mean Corpuscular HGB CONC 30.8 g/dL (32.0-36.0); Mean Corpuscular Hemoglobin 23.2 pg (27.0-31.0); Mean Corpuscular Volume 75.1 fL (78.0-98.0); Mean Platelet Volume 11.1 fL (7.4-10.4); Monocytes 7 % (0-10); Neutrophil 71 % (42-75); Platelet Count 332 thou/uL (130-400); Platelet Morphology Comment Appears Adequate; RBC Distribution Width 22.1 % (11.5-14.5); Red Blood Cell (RBC) Count 3.93 mill/uL (4.20-5.40); White Blood Cell (WBC) Count 4.9 thou/uL (4.8-10.8)
[2019-08-19] MEDS: Benztropine 1 MG TAB PO SCH (09:44)
[2019-08-19 17:05] VITALS: BP 125/94; TEMP 98.9
--- NOTE | 2019-08-20 09:17 | DIS ---
DATE OF ADMISSION: 08/16/2019 DATE OF DISCHARGE: 08/19/2019 DISCHARGE DIAGNOSES: 1. Anemia due to chronic blood loss. 2. Menorrhagia. 3. Psychosis. DISCHARGE MEDICATIONS: 1. Seroquel 100 mg orally nightly. 2. Valbenazine 80 mg orally daily. HISTORY OF PRESENT ILLNESS AND HOSPITAL COURSE: The patient is a 44-year-old female with multiple psychiatric disorders, who was sent to our emergency department for medical clearance, referred to [facility]. In the ER, her hemoglobin was found to be 5.1. The patient does have abnormally formed bleeding with menorrhagia. She is on the third day of her menstrual cycle. She was placed in observation and transfused 3 units of packed RBCs leading to improvement in her hemoglobin level to 9.9. On the day of discharge, the patient is able to ambulate well and is asymptomatic. At this time, she is ready for transfer. Job ID: [id number] MTDD
== END 2019-08-19 17:04 | DRG 812 ==
LOC: ERS 11:49 → T4-A 13:34
PROVIDERS: ADMIT Internal Medicine; ATTEND Internal Medicine
PROC: 30233N1 Transfusion of Nonautologous Red Blood Cells into Peripheral Vein, Percutaneous Approach (ICD-10-PCS; principal; 2019-08-16)
DX: D50.0 Iron deficiency anemia secondary to blood loss (chronic) (principal); N92.0 Excessive and frequent menstruation with regular cycle; F29 Unspecified psychosis not due to a substance or known physiological condition; F32.9 Major depressive disorder, single episode, unspecified; F25.9 Schizoaffective disorder, unspecified
CPT/HCPCS: 36415; 36430; 80048; 80053; 81003; 81015; 82550; 84443; 84703; 85007; 85025; 85027; 85060; 86850; 86900; 86901; 93005; J0360; P9016

== ENCOUNTER 2020-12-24 13:19 | Outpatient (CLI) | payer MEDICARE, MEDICAID | END 2020-12-24 13:20 | disposition home or self-care (01) | LOC: BICULT 13:19 | PROVIDERS: ATTEND Nurse Practitioner Women's Health | DX: N93.9 Abnormal uterine and vaginal bleeding, unspecified (principal); D25.9 Leiomyoma of uterus, unspecified | CPT/HCPCS: 76856 ==

== ENCOUNTER 2021-02-06 18:08 | Emergency (ER) | payer MEDICARE, MEDICAID ==
[2021-02-06 18:55] LABS: #Eosinphils 0.2 thou/uL (0.0-0.7); #Lymphocytes 0.9 thou/uL (1.20-3.40); #Monocytes 0.6 thou/uL (0.11-0.59); #Neutrophils 3.1 thou/uL (1.40-6.50); %Basophils 0.3 % (0.0-1.0); %Eosinophils 5.1 % (0.0-10.0); %Lymphocytes 18.5 % (21.0-51.0); %Neutrophils 63.2 % (42.0-75.0); Mean Corpuscular HGB CONC 30.6 g/dL (32.0-36.0); Mean Corpuscular Hemoglobin 26.1 pg (27.0-31.0); Mean Corpuscular Volume 85.4 fL (78.0-98.0); Mean Platelet Volume 11.4 fL (7.4-10.4); Platelet Count 270 thou/uL (130-400); RBC Distribution Width 18.1 % (11.5-14.5); Red Blood Cell (RBC) Count 3.44 mill/uL (4.20-5.40); White Blood Cell (WBC) Count 4.8 thou/uL (4.8-10.8)
[2021-02-06 19:14] LABS: ALT (SGPT) 7 U/L (8-55); AST (SGOT) 10 U/L (5-34); Acetaminophen Less than 6.0 mcg/mL (10.0-30.0); Albumin 3.7 g/dL (3.5-5.0); Alcohol Less than 10 mg/dL (Less than 10); Alkaline Phosphatase 40 U/L (40-110); Anion Gap 11 mmol/L (10-20); BUN (Urea Nitrogen) 11 mg/dL (7.0-18.7); Bilirubin, Total Less than 0.2 mg/dL (0.2-1.2); Calc. Creatinine Clearance 0 mL/min (70-130); Calcium 9.3 mg/dL (7.8-10.44); Carbon Dioxide 26 mmol/L (22-29); Chloride 108 mmol/L (98-107); Globulin 2.7 g/dL (2.4-3.5); Glucose 102 mg/dL (70-105); Potassium 3.9 mmol/L (3.5-5.1); Protein, Total 6.4 g/dL (6.0-8.3); Salicylate Less than 8.0 mg/dL (15.0-30.0); Sodium 141 mmol/L (136-145)
[2021-02-06 20:06] LABS: Pregnancy Test - Urine (BHCG) Negative (Negative); Pregu Control Background? CLEAR/WHITE (CLR/WHITE); Pregu Control Bar Appear? YES (CONTROL BAR); Specific Gravity 1.022 (1.002-1.036)
[2021-02-06 20:14] LABS: Amphetamine Not Detected (NotDetected); Barbiturates Screen Not Detected (NotDetected); Benzodiazepine Screen Not Detected (NotDetected); Cocaine Metabolite Screen Not Detected (NotDetected); Methadone Not Detected (NotDetected); Methamphetamine Not Detected (NotDetected); Opiate Screen Not Detected (NotDetected); Oxycodone Screen Not Detected (NotDetected); Phencyclidine (PCP) Not Detected (NotDetected); THC/Cannabinoid Screen Not Detected (NotDetected); Tricyclic Screen Not Detected (NotDetected)
[2021-02-06 20:57] LABS: SARS-CoV-2 NAA Rapid Test Not Detected (NotDetected)
== END 2021-02-07 18:04 ==
LOC: ERS 18:08
DX: F20.9 Schizophrenia, unspecified (principal); Z20.822 Contact with and (suspected) exposure to COVID-19; Z79.899 Other long term (current) drug therapy
CPT/HCPCS: 70450; 80306; 80307 ×2; 81025; U0002; 36415; 80053; 84443; 85025

== ENCOUNTER 2021-09-28 22:15 | Emergency (ER) | payer MEDICARE, MEDICAID ==
[2021-09-28] MEDS ORDERED: Boostrix 0.5 ML (Tdap) VIAL ONE (22:40)
[2021-09-28] MEDS ORDERED: Bacitracin 1 PK ONE (22:40)
[2021-09-28] MEDS ORDERED: Acetaminophen 500 MG TAB ONE (22:40)
== END 2021-09-29 00:33 | disposition home or self-care (01) ==
LOC: ERS 22:15
DX: S40.212A Abrasion of left shoulder, initial encounter (principal); S60.411A Abrasion of left index finger, initial encounter; S60.413A Abrasion of left middle finger, initial encounter; S60.415A Abrasion of left ring finger, initial encounter; S60.417A Abrasion of left little finger, initial encounter; W18.30XA Fall on same level, unspecified, initial encounter; Y93.01 Activity, walking, marching and hiking; Z23 Encounter for immunization
CPT/HCPCS: 90471; 90715

== ENCOUNTER 2021-09-29 11:13 | Emergency (ER) | payer MEDICARE, MEDICAID ==
[2021-09-29] MEDS ORDERED: diphenhydrAMINE 50 MG/ML VIAL ONE (11:16)
[2021-09-29] MEDS ORDERED: Haloperidol Lactate 5 MG/ML VIAL ONE (11:16)
[2021-09-29] MEDS ORDERED: Lorazepam 2 MG/ML VIAL ONE (11:16)
[2021-09-29 12:11] LABS: #Lymphocytes 0.6 thou/uL (1.20-3.40); #Monocytes 0.6 thou/uL (0.11-0.59); #Neutrophils 3.6 thou/uL (1.40-6.50); %Basophils 0.8 % (0.0-1.0); %Eosinophils 0.5 % (0.0-10.0); %Lymphocytes 12.5 % (21.0-51.0); %Monocytes 12.4 % (0.0-10.0); %Neutrophils 73.8 % (42.0-75.0); Hemoglobin 6.7 g/dL (12.0-16.0); Mean Corpuscular HGB CONC 29.3 g/dL (32.0-36.0); Mean Corpuscular Hemoglobin 21.3 pg (27.0-31.0); Mean Corpuscular Volume 72.7 fL (78.0-98.0); Mean Platelet Volume 5.9 fL (7.4-10.4); Platelet Count 194 thou/uL (130-400); Red Blood Cell (RBC) Count 3.13 mill/uL (4.20-5.40); White Blood Cell (WBC) Count 4.9 thou/uL (4.8-10.8)
[2021-09-29 12:39] LABS: ALT (SGPT) 11 U/L (8-55); AST (SGOT) 17 U/L (5-34); Alkaline Phosphatase 48 U/L (40-110); Anion Gap 12 mmol/L (10-20); BUN (Urea Nitrogen) 13 mg/dL (7.0-18.7); Bilirubin, Total 0.3 mg/dL (0.2-1.2); Calc. Creatinine Clearance 0 mL/min (70-130); Calcium 9.1 mg/dL (7.8-10.44); Carbon Dioxide 24 mmol/L (22-29); Chloride 106 mmol/L (98-107); Glucose 98 mg/dL (70-105); Potassium 3.8 mmol/L (3.5-5.1); Sodium 138 mmol/L (136-145)
[2021-09-29 12:41] LABS: Acetaminophen Less than 10.0 mcg/mL (10.0-30.0); Alcohol Less than 10 mg/dL (Less than 10); Magnesium 1.9 mg/dL (1.6-2.6); Salicylate Less than 8.0 mg/dL (15.0-30.0)
[2021-09-29 12:53] LABS: Bilirubin Negative (Negative); Blood, Urine Negative (Negative); Glucose, Urine (Dipstick) Negative (Negative); Ketone, Urine Negative (Negative); Leukocyte Negative (Negative); Nitrite Negative (Negative); Protein, Urine (Dipstick) Negative (Neg-Trace); Urobilinogen 0.2 mg/dL (Less than 2)
[2021-09-29 12:55] LABS: Clarity CLEAR (Clear)
[2021-09-29 13:00] LABS: Amphetamine Not Detected (NotDetected); Barbiturates Screen Not Detected (NotDetected); Benzodiazepine Screen Not Detected (NotDetected); Cocaine Metabolite Screen Not Detected (NotDetected); Methadone Not Detected (NotDetected); Methamphetamine Not Detected (NotDetected); Opiate Screen Not Detected (NotDetected); Oxycodone Screen Not Detected (NotDetected); Phencyclidine (PCP) Not Detected (NotDetected); THC/Cannabinoid Screen Not Detected (NotDetected); Tricyclic Screen Not Detected (NotDetected)
[2021-09-29 13:29] LABS: SARS-CoV-2 NAA Rapid Test Not Detected (NotDetected)
[2021-09-29 20:40] LABS: #Lymphocytes 0.7 thou/uL (1.20-3.40); #Monocytes 0.6 thou/uL (0.11-0.59); #Neutrophils 3.1 thou/uL (1.40-6.50); %Basophils 1.1 % (0.0-1.0); %Eosinophils 0.6 % (0.0-10.0); %Lymphocytes 16.4 % (21.0-51.0); %Neutrophils 68.9 % (42.0-75.0); Hemoglobin 7.6 g/dL (12.0-16.0); Mean Corpuscular HGB CONC 29.9 g/dL (32.0-36.0); Mean Corpuscular Hemoglobin 22.2 pg (27.0-31.0); Mean Corpuscular Volume 74.2 fL (78.0-98.0); Mean Platelet Volume 6.5 fL (7.4-10.4); Platelet Count 194 thou/uL (130-400); RBC Distribution Width 24.8 % (11.5-14.5); Red Blood Cell (RBC) Count 3.43 mill/uL (4.20-5.40); White Blood Cell (WBC) Count 4.5 thou/uL (4.8-10.8)
[2021-09-29 21:15] LABS: Pregnancy Test - Urine (BHCG) Negative (Negative); Pregu Control Background? CLEAR/WHITE (CLR/WHITE); Pregu Control Bar Appear? YES (CONTROL BAR)
[2021-09-30 09:02] LABS: Hemoglobin 7.8 g/dL (12.0-16.0); Mean Corpuscular HGB CONC 30.4 g/dL (32.0-36.0); Mean Corpuscular Hemoglobin 22.5 pg (27.0-31.0); Mean Platelet Volume 5.5 fL (7.4-10.4); Platelet Count 212 thou/uL (130-400); RBC Distribution Width 24.9 % (11.5-14.5); Red Blood Cell (RBC) Count 3.44 mill/uL (4.20-5.40); White Blood Cell (WBC) Count 4.4 thou/uL (4.8-10.8)
[2021-09-30 09:03] LABS: #Monocytes 0.5 thou/uL (0.11-0.59); #Neutrophils 2.9 thou/uL (1.40-6.50); %Basophils 0.8 % (0.0-1.0); %Lymphocytes 22.6 % (21.0-51.0); %Monocytes 10.8 % (0.0-10.0); %Neutrophils 64.8 % (42.0-75.0)
[2021-09-30 09:28] LABS: Hypochromia SLIGHT = 6-15 cells (100X) (0-5/hpf); MDiff Complete? YES; Microcytosis SLIGHT = 6-15 cells (100X) (0-5/hpf); Ovalocytes SLIGHT = 2-5 cells (100X) (0-1/hpf); Polychromasia SLIGHT = 2-3 cells (100X) (0-2/hpf)
== END 2021-09-30 15:50 ==
LOC: ERS 11:13
DX: F20.9 Schizophrenia, unspecified (principal); D50.0 Iron deficiency anemia secondary to blood loss (chronic); Z20.822 Contact with and (suspected) exposure to COVID-19
CPT/HCPCS: 36430; 70450; 80053; 80306; 80307; 81003; 81025; 83735; 85025 ×2; 86850; 86900; 86901; 86920; 93005; P9016; U0002; 36415; 96372; J1200; J1630; J2060

== ENCOUNTER 2023-01-10 13:04 | Emergency (ER) | payer MEDICARE, MEDICAID ==
[2023-01-10] MEDS ORDERED: Sterile Water 10 ML ONE (13:24)
[2023-01-10] MEDS ORDERED: Ziprasidone 20 MG VIAL ONE (13:24)
[2023-01-10 14:18] LABS: Bacteria/HPF None Seen HPF (None Seen); Bilirubin Negative (Negative); Blood, Urine Negative (Negative); CAUTI Indications for Culture Alt mental st,lethar; Clarity Clear (Clear); Glucose, Urine (Dipstick) Normal (Negative); Ketone, Urine Negative (Negative); Leukocyte Negative Leu/uL (Negative); Nitrite Negative (Negative); Protein, Urine (Dipstick) 10 mg/dL (Neg-Trace); RBC/HPF 0-3 HPF (0-3); Specific Gravity, Urine 1.023 (1.002-1.036); Urobilinogen Normal mg/dL (Less than 2); WBC/HPF 0-3 HPF (0-3)
[2023-01-10 14:19] LABS: Urine Culture Reflex No No
[2023-01-10 14:20] LABS: Pregnancy Test - Urine (BHCG) Negative (Negative); Pregu Control Background? CLEAR/WHITE (CLR/WHITE); Pregu Control Bar Appear? YES (CONTROL BAR); Specific Gravity 1.023 (1.002-1.036)
[2023-01-10 14:25] LABS: Amphetamine Not Detected (NotDetected); Barbiturates Screen Not Detected (NotDetected); Benzodiazepine Screen Not Detected (NotDetected); Cocaine Metabolite Screen Not Detected (NotDetected); Methadone Not Detected (NotDetected); Methamphetamine Not Detected (NotDetected); Opiate Screen Not Detected (NotDetected); Oxycodone Screen Not Detected (NotDetected); Phencyclidine (PCP) Not Detected (NotDetected); THC/Cannabinoid Screen Not Detected (NotDetected); Tricyclic Screen Not Detected (NotDetected)
[2023-01-10 16:29] LABS: #Monocytes 0.7 thou/uL (0.11-0.59); #Neutrophils 2.9 thou/uL (1.40-6.50); %Basophils 0.6 % (0.0-1.0); %Eosinophils 0.9 % (0.0-10.0); %Lymphocytes 21.7 % (21.0-51.0); %Monocytes 15.1 % (0.0-10.0); %Neutrophils 61.5 % (42.0-75.0); Hematocrit 27.5 % (36.0-47.0); Hemoglobin 7.8 g/dL (12.0-16.0); Mean Corpuscular HGB CONC 28.4 g/dL (32.0-36.0); Mean Corpuscular Hemoglobin 22.3 pg (27.0-31.0); Mean Corpuscular Volume 78.6 fl (78.0-98.0); Mean Platelet Volume 11.1 fL (7.4-10.4); Platelet Count 291 10x3/uL (130-400); White Blood Cell (WBC) Count 4.7 10x3/uL (4.8-10.8)
[2023-01-10 16:52] LABS: Acetaminophen Less than 10 mcg/mL (10.0-30.0); Alcohol Less than 10.0 mg/dL (Less than 10); Salicylate Less than 8.0 mg/dL (15.0-30.0)
[2023-01-10 16:53] LABS: ALT (SGPT) 11 U/L (8-55); AST (SGOT) 16 U/L (5-34); Albumin 3.8 g/dL (3.5-5.0); Alkaline Phosphatase 66 U/L (40-110); Anion Gap 12 mmol/L (10-20); BUN (Urea Nitrogen) 7 mg/dL (7.0-18.7); Bilirubin, Total 0.2 mg/dL (0.2-1.2); Calc. Creatinine Clearance 0 mL/min (70-130); Calcium 9.3 mg/dL (7.8-10.44); Carbon Dioxide 26 mmol/L (22-29); Chloride 108 mmol/L (98-107); Estimated GFR 103; Globulin 2.4 g/dL (2.4-3.5); Glucose 105 mg/dL (70-105); Potassium 4.1 mmol/L (3.5-5.1); Protein, Total 6.2 g/dL (6.0-8.3); Sodium 142 mmol/L (136-145)
[2023-01-10 16:56] LABS: Anisocytosis SLIGHT = 6-15 cells HPF (0-5); Burr Cells SLIGHT = 2-5 cells HPF (0-1); CellaVision Operator ID LAB.MJL; Hypochromia SLIGHT = 6-15 cells HPF (0-5); Ovalocytes SLIGHT = 2-5 cells HPF (0-1); Platelet Adequacy Comment Platelets Normal; Poikilocytosis SLIGHT = 6-15 cells HPF (0-5); Polychromasia MODERATE = 3-4 cells HPF (0-2)
[2023-01-11] MEDS ORDERED: Ziprasidone 20 MG VIAL ONE (00:28)
[2023-01-11] MEDS ORDERED: Sterile Water 10 ML ONE (00:29)
== END 2023-01-11 11:48 ==
LOC: ERS 13:04
DX: F06.2 Psychotic disorder with delusions due to known physiological condition (principal); D64.9 Anemia, unspecified
CPT/HCPCS: 36415; 80053; 80306; 80307; 81001; 81025; 85025; 93005; 96372; J3486